=== PATIENT | male | born 1965 | race Caucasian/White ===

== ENCOUNTER 2021-09-12 09:40 | Emergency (ER) | payer OTHER ==
[2021-09-12] MEDS ORDERED: Doxycycline 100 MG Cap PO ONE (10:27)
--- NOTE | 2021-09-12 10:30 | EDM.PDOC ---
ED HPI GENERAL MEDICAL PROBLEM - General Chief Complaint: Bite:Animal, Insect Stated Complaint: TICK BITE ON ABDOMEN Time Seen by Provider: 09/12/21 10:10 Source of Information: Reports: Patient History Limitations: Reports: No Limitations - History of Present Illness INITIAL COMMENTS - FREE TEXT/NARRATIVE: 55-year-old male pulled a small tick off of his left lower abdomen 2 days ago, this morning he noticed that there is a small target-like lesion on his abdomen and he became worried and wanted it looked at. He otherwise feels fine. Tick was not engorged with blood Onset: Gradual Duration: Day(s): (Developed over the past 2 days) Location: Reports: Abdomen (Left lower abdomen) Associated Symptoms: Reports: No Other Symptoms - Related Data Allergies Allergy/AdvReac Type Severity Reaction Status Date / Time No Known Allergies Allergy Verified 09/12/21 10:14 Home Meds: Home Meds NK [No Known Home Meds] 09/12/21 [History] Past Medical History HEENT History: Reports: Impaired Vision Gastrointestinal History: Reports: None Musculoskeletal History: Reports: Arthritis Endocrine/Metabolic History: Reports: Obesity/BMI 30+ - Infectious Disease History Infectious Disease History: Reports: Chicken Pox - Past Surgical History Head Surgeries/Procedures: Reports: None HEENT Surgical History: Reports: Tonsillectomy GI Surgical History: Reports: Appendectomy Endocrine Surgical History: Reports: None Musculoskeletal Surgical History: Reports: Hip Replacement Dermatological Surgical History: Reports: None Social & Family History - Tobacco Use Tobacco Use Status *Q: Former Tobacco User Used Tobacco, but Quit: Yes Month/Year Tobacco Last Used: 1987 - Caffeine Use Caffeine Use: Reports: Coffee - Recreational Drug Use Recreational Drug Use: No ED ROS GENERAL - Review of Systems Review Of Systems: See Below Constitutional: Denies: Fever, Chills HEENT: Reports: No Symptoms Respiratory: Reports: No Symptoms Cardiovascular: Reports: No Symptoms GI/Abdominal: Reports: No Symptoms Skin: Reports: Other (See HPI) Neurological: Reports: No Symptoms ED EXAM, ANIMAL BITE - Physical Exam Exam: See Below Exam Limited By: No Limitations General Appearance: Alert, No Apparent Distress Respiratory/Chest: No Respiratory Distress Neurological: Alert, Oriented Psychiatric: Normal Affect, Normal Mood Skin Exam: Other (Left lower anterior abdomen has a small, 2 cm round erythematous lesion with a central black center typical of a toxic reaction to tick bite) Course - Vital Signs Last Recorded V/S: Last Vital Signs Temp 97.6 F 09/12/21 10:15 Pulse 79 09/12/21 10:15 Resp 16 09/12/21 10:15 BP 183/105 H 09/12/21 10:15 Pulse Ox 96 09/12/21 10:15 - Orders/Labs/Meds Meds: Medications Discontinued Medications Generic Name Dose Route Start Last Admin Trade Name Janet PRN Reason Stop Dose Admin Doxycycline Hyclate 200 mg 09/12/21 10:27 09/12/21 10:38 Doxycycline 100 Mg Cap PO 09/12/21 10:28 200 mg ONETIME ONE Administration - Re-Assessments/Exams Free Text/Narrative Re-Assessment/Exam: 09/12/21 10:29 Patient was reassured that this is not a target lesion of Lyme's disease but a natural immune response to a bite. He was given 1 prophylactic dose of doxycycline, 200 mg. He can recheck in 1 to 2 weeks if he develops other symptoms. Departure - Departure Time of Disposition: 10:41 Disposition: Home, Self-Care 01 Clinical Impression: Tick bite of abdominal wall Qualifiers: Encounter type: initial encounter Qualified Code(s): S30.861A - Insect bite (nonvenomous) of abdominal wall, initial encounter - Discharge Information Instructions: Tick Bite Information, Adult, [id number] Referrals: PCP,None [Primary Care Provider] - Forms: ED Department Discharge Care Plan Goals: A small amount of hydrocortisone will help with the itching or irritation, recheck if the lesion gets significantly larger, you develop fever chills or other symptoms. Sepsis Event Note (ED) - Evaluation Sepsis Screening Result: No Definite Risk - Focused Exam Vital Signs: Vital Signs Temp Pulse Resp BP Pulse Ox 09/12/21 10:15 97.6 F 79 16 183/105 H 96 09/12/21 10:14 97.6 F 79 16 183/105 H 96
== END 2021-09-12 10:41 | disposition home or self-care (01) ==
LOC: JP.ED 09:40
DX: S30.861A Insect bite (nonvenomous) of abdominal wall, initial encounter (principal); E66.9 Obesity, unspecified; Z68.35 Body mass index [BMI] 35.0-35.9, adult; Z87.891 Personal history of nicotine dependence; W57.XXXA Bitten or stung by nonvenomous insect and other nonvenomous arthropods, initial encounter
CPT/HCPCS: 99283; A9270

== ENCOUNTER 2022-09-01 15:05 | Emergency (ER) | payer OTHER ==
[~2022-09-01 15:05] MED LIST: Sodium Chloride 0.9% 1,000 ML IV ONE
[2022-09-01] MEDS ORDERED: HYDROmorphone 0.5 MG/0.5 ML Syringe ONE ×3 (16:00→18:00)
[2022-09-01] MEDS ORDERED: Lidocaine 1% with EPINEPHrine 1:100,000 50 ML MDV ONE (16:00)
[2022-09-01] MEDS ORDERED: Ondansetron 4 MG/2 ML SDV ONE (16:00)
[2022-09-01] MEDS ORDERED: Diphtheria,Pertussis(Acell),Tetanus Vaccine 0.5 ML Syringe IM ONE (16:15)
[2022-09-01] MEDS ORDERED: Clindamycin Phosphate 600 MG in Sodium Chloride 0.9% 100 ML IV ONE (16:30)
[2022-09-26 10:42] LABS: ESTIMATED GFR 71 mL/min (>60)
== END 2022-09-01 19:23 | disposition home or self-care (01) ==
LOC: JP.ED 15:05
DX: S91.22 Laceration with foreign body of toe with damage to nail (principal); S91.115A Laceration without foreign body of left lesser toe(s) without damage to nail, initial encounter; S91.204A Unspecified open wound of right lesser toe(s) with damage to nail, initial encounter; Z23 Encounter for immunization; W29.3XXA Contact with powered garden and outdoor hand tools and machinery, initial encounter
CPT/HCPCS: 12042; 36415; 73630; 80053; 85027; 90471; 90715; 96361; 96365; 96375; 96376; 99283; J1170; J2405; J3490; J7030